=== PATIENT | female | born 1940 | race Caucasian/White ===

== ENCOUNTER 2017-02-20 21:15 | Emergency (ER) | payer MEDICARE ==
[~2017-02-20] VITALS: Ht 160 cm; Wt 109.8 kg
[~2017-02-20 21:15] MED LIST: BISO5TAB2 PO; CALC600T7 PO; CENTTAB PO; GLUC250C5 PO; IBUP200C PO; OMEP20CA3 PO
[2017-02-20 21:16] VITALS: BP 177/79
[2017-02-20] MEDS ORDERED: LOSA50TA20 PO (21:40)
[2017-02-20] MEDS ORDERED: FURO8SOL PO (21:40)
[2017-02-20] MEDS ORDERED: LEVO25TA5 PO (21:40)
[2017-02-20] MEDS ORDERED: BISO10TA6 PO (21:40)
[2017-02-20] MEDS ORDERED: ASCO25TA PO (21:40)
[2017-02-20] MEDS ORDERED: KEFL500C7 PO (23:55)
== END 2017-02-21 00:28 | disposition home or self-care (01) ==
LOC: M ED 02-21 00:26
DX: S80.11XA Contusion of right lower leg, initial encounter (principal); W19.XXXA Unspecified fall, initial encounter; Y92.019 Unspecified place in single-family (private) house as the place of occurrence of the external cause; Y93.89 Activity, other specified; Y99.9 Unspecified external cause status; I10 Essential (primary) hypertension; Z79.899 Other long term (current) drug therapy; Z88.1 Allergy status to other antibiotic agents; Z90.79 Acquired absence of other genital organ(s)

== ENCOUNTER → 2017-05-20 | Outpatient (CLI) | payer MEDICARE ==
[~2017-05-20] MED LIST changes: +ASCO25TA PO; +BISO10TA6 PO; +FURO8SOL PO; +KEFL500C17 PO; +LEVO25TA5 PO; +LOSA50TA20 PO
--- NOTE | 2017-05-21 09:41 | DEXA ---
AP SPINE L1 - L4 1.333 1.3 3.1 LT FEMUR TOTAL 0.783 -1.8 0.1 RT FEMUR TOTAL 0.921 -0.7 1.2 TOTAL BODY TOTAL OTHER L1 0.821 -2.6 -0.8 DUAL FEMUR FRAX* ASSESSMENT Risk factors: Not done. 10 year probability of fracture Major osteoporotic fracture % Hip fracture % COMMENTS: Normal bone densitometry of the spine. There is low bone density of the right hip. There is osteoporosis of the left hip. The density of the spine has increased 10.9% since 03/17/2011. The density of the left hip has decreased 8.5% since 03/17/2011. The density of the right hip has decreased 7.1% since 03/17/2011. The increased density of the spine does represent a significant change. The decreased density of the left hip does represent a significant change. The decreased density of the right hip does represent a significant change. FOLLOW-UP: Recommendation for the next bone density exam: 2 years. LESLY
== END ==
LOC: M WHC 10:08
PROVIDERS: ATTEND Internal Medicine
DX: Z12.31 Encounter for screening mammogram for malignant neoplasm of breast (principal); Z78.0 Asymptomatic menopausal state; Z13.820 Encounter for screening for osteoporosis; M81.0 Age-related osteoporosis without current pathological fracture; M85.80 Other specified disorders of bone density and structure, unspecified site; Z12.72 Encounter for screening for malignant neoplasm of vagina; Z85.43 Personal history of malignant neoplasm of ovary
CPT/HCPCS: 77080; 82270; G0101; G0123; G0202

== ENCOUNTER → 2017-05-20 | Outpatient (CLI) | payer MEDICARE ==
--- NOTE | 2017-05-20 13:52 | REPMRS ---
Patient History The patient states she had a clinical breast exam in 05/2017. Patient is postmenopausal and has history of ovarian cancer at age 40. Family history of endometrial cancer in mother at age 60 and breast cancer in maternal aunt at age 35. Took unspecified hormones for 1 month. Digital Woman Screen Mammo: May 20, 2017 - Exam #: [id number] Bilateral CC and MLO view(s) were taken. Technologist: Sylvie Bray Technologist Prior study comparison: May 20, 2016, digital woman screen mammo performed at [facility]. May 10, 2015, digital woman screen mammo performed at [facility]. FINDINGS: There are scattered fibroglandular densities. There has been no change in the appearance of the mammogram from the prior studies. There is a mild amount of residual fibroglandular tissue which is fairly symmetric. There is no interval development of dominant mass, architectural distortion, or clustered microcalcification suggestive of malignancy. ASSESSMENT: BI-RADS/ACR category 1 mammogram. Negative. Recommendation Routine screening mammogram in 1 year (for women over age 40). This mammogram was interpreted with the aid of an FDA-approved computer-aided dectection system. Electronically Signed By: Marcellus Flores MD 05/20/17 [id number]
== END ==
LOC: M WHC 10:28
PROVIDERS: ATTEND Nurse Practitioner Women's Health
DX: Z12.31 Encounter for screening mammogram for malignant neoplasm of breast (principal); Z78.0 Asymptomatic menopausal state

== ENCOUNTER → 2017-05-20 | Outpatient (REF) | payer MEDICARE | LOC: M SFHCWAGY 11:00 | PROVIDERS: ATTEND Nurse Practitioner Women's Health | DX: Z12.72 Encounter for screening for malignant neoplasm of vagina (principal) ==

== ENCOUNTER → 2018-05-23 | Outpatient (CLI) | payer MEDICARE | LOC: M WHC 11:02 | DX: Z12.31 Encounter for screening mammogram for malignant neoplasm of breast (principal); Z92.29 Personal history of other drug therapy; Z80.49 Family history of malignant neoplasm of other genital organs | CPT/HCPCS: 77067 ==

== ENCOUNTER → 2019-05-25 | Outpatient (CLI) | payer MEDICARE ==
[~2019-05-25] MED LIST changes: -ASCO25TA PO; +BISO10TA10 PO; -BISO10TA6 PO; -LOSA50TA20 PO; +LOSA50TA88 PO; +VITA1TAB23 PO
--- NOTE | 2019-05-25 12:21 | REP ---
BILATERAL SCREENING DIGITAL MAMMOGRAM WITH 3D TOMOSYNTHESIS: There are no palpable abnormalities or other breast complaints. The the patient states she had a clinical breast examination May,. The the patient states she performs self-breast examinations 12 times per year. The Tyrer-Cuzick Score is: 3.0% . Comparison is 05/09/2014. There are scattered areas of fibroglandular density. There is no dominant mass, micro calcific cluster or architectural distortion that would indicate malignancy. There are no additional findings on 3D tomosynthesiss. There is no change from the prior study. Impression: BIRADS/ACR category 1 mammogram. Negative. Recommendation: Routine annual screening mammography. This mammogram was interpreted with the aid of a FDA approved computer-aided detection system. A. Negative mammogram reports should not delay biopsy if a dominant or clinically suspicious mass is present. B. Not all breast cancers are identified by mammography or tomosynthesis. C. Adenosis and dense breasts may obscure an underlying neoplasm. Patient letter M1. Electronically Signed by Marcellus Park MD 05/25/2019 12:14 P
== END ==
LOC: M WHC 11:12
PROVIDERS: ATTEND Nurse Practitioner Women's Health
DX: Z01.419 Encounter for gynecological examination (general) (routine) without abnormal findings (principal); Z12.31 Encounter for screening mammogram for malignant neoplasm of breast
CPT/HCPCS: 77063; 77067; G0101

== ENCOUNTER → 2023-07-09 | Outpatient (CLI) | payer MEDICARE ==
[~2023-07-09] MED LIST changes: +ASCO250T20 PO; -BISO10TA10 PO; +BISO10TA14 PO; +LOSA50TA28 PO; -LOSA50TA88 PO; -VITA1TAB23 PO
== END ==
LOC: M RAD 14:48
PROVIDERS: ATTEND Internal Medicine
DX: M79.604 Pain in right leg (principal); R22.41 Localized swelling, mass and lump, right lower limb

== ENCOUNTER → 2024-02-03 | Outpatient (REF) | payer MEDICARE ==
[2024-02-03 18:44] LABS: PERCENT SATURATION 23.7 % (13.2-45.0)
[2024-02-03 18:45] LABS: FERRITIN 39.4 NG/ML (7.3-270.7)
== END ==
LOC: M LAB REF 16:24
PROVIDERS: ATTEND Internal Medicine
DX: D50.9 Iron deficiency anemia, unspecified (principal)

== ENCOUNTER → 2024-03-28 | Outpatient (REF) | payer MEDICARE ==
[2024-03-28 18:04] LABS: PERCENT SATURATION 27.2 % (13.2-45.0)
[2024-03-28 18:06] LABS: FERRITIN 49.9 NG/ML (7.3-270.7)
== END ==
LOC: M LAB REF 16:27
PROVIDERS: ATTEND Internal Medicine
DX: D50.9 Iron deficiency anemia, unspecified (principal)

== ENCOUNTER → 2025-02-02 | Outpatient (REF) | payer MEDICARE | LOC: M LAB REF 14:36 | PROVIDERS: ATTEND Internal Medicine | DX: L97.829 Non-pressure chronic ulcer of other part of left lower leg with unspecified severity (principal) ==